=== PATIENT | male | born 1985 | race Caucasian/White ===

== ENCOUNTER 2016-12-27 08:56 | Day surgery (SDC) | payer BC, MEDICAID ==
[~2016-12-27 08:56] MED LIST: Buffered Lidocaine 1% SYR 3ML* 3 ML/SYR SYRINGE INTRADERM ONE
[2016-12-27] MEDS ORDERED: Oxymetazoline 0.05% NASAL SPR* 15 ML BTL ONE (11:41)
[2016-12-27] MEDS ORDERED: Lidocaine 4% TOPICAL* 50 ML TOP.SOLN ONE (11:41)
[2016-12-27] MEDS ORDERED: fentaNYL* 50 MCG/ML 2 ML VIAL (100 MCG VIAL) ONE (11:44)
[2016-12-27] MEDS ORDERED: Midazolam* 1 MG/ML 2 ML VIAL (2 MG) ONE (11:45)
[2016-12-27] MEDS ORDERED: Propofol* 10 MG/ML 20 ML BTL IV PUSH ONE (12:10)
[2016-12-27] MEDS ORDERED: Succinylcholine* 20 MG/ML 10 ML VIAL ONE (12:10)
[2016-12-27] MEDS ORDERED: Lidocaine 2% PF * 5 ML VIAL ONE (12:10)
[2016-12-27] MEDS ORDERED: Dexamethasone IV* 4 MG/ML 1 ML (4 MG) ONE (12:10)
[2016-12-27] MEDS ORDERED: Ondansetron INJ* 2 MG/ML VIAL ONE (12:10)
[2016-12-27] MEDS ORDERED: Acetaminophen TAB* 325 MG ONE (12:54)
[2016-12-27 13:22] VITALS: BP 139/92
--- NOTE | 2016-12-28 00:30 | OP ---
DATE OF OPERATION: 12/27/16 - [facility] DATE OF : 87 SURGEON: Cale Cummings MD ANESTHESIOLOGIST: Deanna Mora MD ANESTHESIA: General endotracheal anesthesia. 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 OPERATIVE PROCEDURE: Microlaryngoscopy with manipulation of the right arytenoid cartilage under general endotracheal anesthesia. COMPLICATION: None. DISPOSITION: Good. SPECIMEN: None. BLOOD LOSS: None. DESCRIPTION OF PROCEDURE: The patient was taken to the operating room, placed in the supine position on the operating table, general anesthesia was introduced , orotracheally intubated, turned and draped for the surgery. Teeth guard was placed on the upper teeth and the laryngoscope was inserted, so I could visualize the larynx and was suspended from Rojas stand using the suspension system. Using a big long microlaryngeal spatula and some suction, I manipulated the arytenoid. I removed the tube, so I could get a really good visualization. I moved the arytenoid around, tried to push it back into position and re-intubate it, removed the laryngoscope and the teeth guard. The patient tolerated the procedure very well, no complications, transferred to the recovery room in stable condition. [id number]/CPS #: [id number] [facility]
== END 2016-12-27 13:00 | disposition home or self-care (01) ==
LOC: OR 08:56
PROVIDERS: ATTEND Otolaryngology
DX: J39.2 Other diseases of pharynx (principal); J38.01 Paralysis of vocal cords and larynx, unilateral; R13.14 Dysphagia, pharyngoesophageal phase; E03.9 Hypothyroidism, unspecified; Z87.820 Personal history of traumatic brain injury
CPT/HCPCS: A9270-GY; J0330; J1100; J2250; J2405; J2704; J3010

== ENCOUNTER 2018-05-23 17:06 | Emergency (ER) | payer OTHER, MEDICAID ==
[2018-05-23 17:41] VITALS: BP 135/95
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
== END 2018-05-23 18:20 | disposition home health service (06) ==
LOC: UCEAST 17:06
DX: R10.31 Right lower quadrant pain (principal); R73.03 Prediabetes; F32.9 Major depressive disorder, single episode, unspecified; Z88.0 Allergy status to penicillin; Z88.1 Allergy status to other antibiotic agents; Z79.899 Other long term (current) drug therapy; Z86.718 Personal history of other venous thrombosis and embolism; Z87.891 Personal history of nicotine dependence
CPT/HCPCS: 99212; G0463

== ENCOUNTER 2018-05-23 18:41 | Emergency (ER) | payer OTHER, MEDICAID ==
[2018-05-23] MEDS ORDERED: Desmopressin TAB (NF) 0.2 MG TAB PO ONE (20:17)
[2018-05-23] MEDS ORDERED: CMCS:Desmopressin TAB (NF) 0.1 MG TAB PO ONE (21:00)
[2018-05-24] MEDS ORDERED: NS 0.9% 1000 ML* 2,000 ML IV ONE (00:34)
[2018-05-24] MEDS ORDERED: Morphine INJ* 10 MG/ML 1 ML CARPUJECT IV ONE (00:34)
[2018-05-24 00:49] LABS: ABS Basophils 0.1 10^3/ul (0-0.2); ABS Eosinophils 0.3 10^3/ul (0-0.6); ABS Lymphocytes 2.7 10^3/ul (1.0-4.8); ABS Monocytes 0.6 10^3/ul (0-0.8); ABS Neutrophils 4.8 10^3/ul (1.5-7.7); ABS Nucleated RBC 0 10^3/ul; Eosinophil % 3.3 % (0-6); Hematocrit 39 % (42-52); Lymphocyte % 31.7 % (25-47); Mean Corpuscular HGB Conc 36 g/dl (31-36); Mean Corpuscular Hemoglobin 32 pg (27-31); Mean Corpuscular Volume 89 fL (80-94); Mean Platelet Volume 7.5 um3 (7.4-10.4); Nucleated Red Blood Cells % 0.1; Platelet Count 207 10^3/ul (150-450); Red Blood Count 4.39 10^6/ul (4.00-5.40); Red Cell Distribution Width 14 % (10.5-15); White Blood Count 8.5 10^3/ul (3.5-10.8)
[2018-05-24 01:08] LABS: EGFR Non-African American 99.1 (>60)
[2018-05-24] MEDS ORDERED: Morphine INJ** 4 MG/ML 1 ML CARPUJECT IV ONE (01:10)
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
[2018-05-24] MEDS ORDERED: Iodixanol* (CONTRAST) 320 MG/ML 100 ML SDV IV ONE (02:56)
[2018-05-24 04:12] LABS: Urine Appearance Clear; Urine Blood Negative (Negative); Urine Color Yellow; Urine Ketones Negative (Negative); Urine Protein Negative (Negative); Urine Specific Gravity 1.039 (1.010-1.030); Urine Urobilinogen Negative (Negative)
[2018-05-24 06:17] VITALS: BP 100/62
--- NOTE | 2018-05-24 08:00 | RAD ---
CLINICAL HISTORY: llq pain, ?diverticulitis COMPARISON: None TECHNIQUE: Multiple contiguous axial CT scans were obtained of the abdomen and pelvis after the administration of intravenous contrast. Coronal and sagittal multiplanar reformations are submitted for review. Oral contrast was administered. Delayed images were obtained through the abdomen. FINDINGS: LUNG BASES: There is minimal dependent atelectasis. LIVER: The liver is diffusely low in attenuation compared to the spleen. There are no focal hepatic parenchymal masses. The liver measures 20 cm in long axis. BILE DUCTS: There is no intrahepatic or extrahepatic biliary dilatation. GALLBLADDER: The gallbladder is normal, without pericholecystic inflammatory change. PANCREAS: The pancreas is normal, without mass or ductal dilatation. SPLEEN: The spleen is homogeneously enlarged measuring 16.6 x 5.2 x 10.3 cm in size. UPPER GI TRACT: Evaluation of the gastrointestinal tract is limited by incomplete gastric distention. The upper GI tract is unremarkable. SMALL BOWEL AND MESENTERY: The small bowel is normal in contour, course, and caliber. There is no obstruction or dilatation. COLON: There are multiple diverticula of the descending and rectosigmoid colon. There is mucosal thickening with stranding of the pericolic fat of the sigmoid colon. There is no loculated fluid collection to suggest abscess. There is a tubular, vermiform, hollow viscus that is blind ending, and originates from the cecum, consistent with a normal appendix. There is no periappendiceal inflammatory change. This is best seen on axial images 63 through 68 ADRENALS: Normal bilaterally. KIDNEYS: There is a simple cyst of the upper pole of the right kidney. There is no appreciable hydronephrosis or nephrolithiasis.. BLADDER: The bladder is smooth in contour. PELVIC ORGANS: The prostate gland is normal. The seminal vesicles are symmetric. AORTA: The aorta is normal. IVC: An IVC filter is noted. LYMPH NODES: There is no lymphadenopathy by size criteria. ABDOMINAL WALL: There is no evidence for abdominal wall hernia. BONES AND SOFT TISSUES: Minimal degenerative changes are noted.. There is mild loss of vertebral body height at T9 OTHER: None IMPRESSION: 1. THERE IS DIVERTICULOSIS WITH MUCOSAL THICKENING AND PERICOLIC INFLAMMATORY CHANGE OF THE SIGMOID COLON, CONSISTENT WITH ACUTE DIVERTICULITIS. THERE IS NO LOCULATED FLUID COLLECTION TO SUGGEST ABSCESS. 2. FATTY INFILTRATION OF THE LIVER WITH HEPATOSPLENOMEGALY. R2
== END 2018-05-24 06:16 | disposition home or self-care (01) ==
LOC: ED 18:41
DX: K57.32 Diverticulitis of large intestine without perforation or abscess without bleeding (principal); Z88.1 Allergy status to other antibiotic agents; Z88.0 Allergy status to penicillin; Z86.711 Personal history of pulmonary embolism; Z79.01 Long term (current) use of anticoagulants; K21.9 Gastro-esophageal reflux disease without esophagitis; Z83.79 Family history of other diseases of the digestive system; Z87.891 Personal history of nicotine dependence
CPT/HCPCS: 36415; 74177; 80053; 81003; 83690; 85025; 86140; 96374; 99284; J2270; Q9967

== ENCOUNTER 2020-01-09 17:25 | Emergency (ER) | payer OTHER ==
[2020-01-09 18:13] VITALS: BP 137/100
[2020-01-09] MEDS ORDERED: Tetan/Diph/Pertus SYR(Tdap)* 0.5 ML SYR(BOOSTRIX) use SYR contains LATEX IM ONE (18:14)
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
--- NOTE | 2020-01-10 12:46 | UC ---
- Progress Note Progress Note: final x ray: negative for fx or free air. No change from wet read. Kj Wade MD Course/Dx - Diagnoses Provider Diagnoses: Puncture wound of toe Discharge ED - Sign-Out/Discharge Documenting (check all that apply): Post-Discharge Follow Up All imaging exams completed and their final reports reviewed: Yes - Discharge Plan Condition: Stable Disposition: HOME Prescriptions: clindamycin HCL [Clindamycin HCl] 300 mg PO TID 7 Days #21 capsule HYDROcodone/ACETAMIN 5-325 MG* [[place] 5-325 TAB*] 1 tab PO Q8H PRN #9 tab MDD 3 PRN Reason: Pain - Severe Levofloxacin TAB* [Levaquin TAB*] 750 mg PO DAILY 5 Days #5 tab Patient Education Materials: Puncture Wound (ED) Referrals: Rafael Fierro MD [Primary Care Provider] - Additional Instructions: Your blood pressure was high at todays visit. Please see your primary provider within 4 weeks for recheck and re-evaluation. Take the antibiotics as prescribed - recommended to take with food. If you develop increased pain, fever, redness, drainage, or streaking redness - please go to the ER immediately. Your tetanus shot was updated today - Billing Disposition and Condition Condition: STABLE Disposition: Home
== END 2020-01-09 19:10 | disposition home or self-care (01) ==
LOC: UCEAST 17:25
DX: S91.132A Puncture wound without foreign body of left great toe without damage to nail, initial encounter (principal); Z23 Encounter for immunization; E11.9 Type 2 diabetes mellitus without complications; E03.9 Hypothyroidism, unspecified; I82.409 Acute embolism and thrombosis of unspecified deep veins of unspecified lower extremity; E23.2 Diabetes insipidus; W45.8XXA Other foreign body or object entering through skin, initial encounter; Y92.9 Unspecified place or not applicable; Y99.0 Civilian activity done for income or pay; Z88.0 Allergy status to penicillin; Z88.1 Allergy status to other antibiotic agents; Z79.890 Hormone replacement therapy; Z79.899 Other long term (current) drug therapy; Z88.8 Allergy status to other drugs, medicaments and biological substances; Z79.84 Long term (current) use of oral hypoglycemic drugs; Z87.891 Personal history of nicotine dependence
CPT/HCPCS: 90471; 90715; 99212; G0463

== ENCOUNTER 2023-01-10 18:24 | Observation (INO) ==
[2023-01-10] MEDS ORDERED: Al Hydrox/Mg Hydrox/Simet LIQ 30 ML UDC PO ONE (21:27)
[2023-01-10 21:52] LABS: ABS Basophils 0.1 10^3/ul (0-0.2); ABS Eosinophils 0.1 10^3/ul (0-0.6); ABS Lymphocytes 1.9 10^3/ul (1.0-4.8); ABS Monocytes 0.7 10^3/ul (0-0.8); ABS Neutrophils 3.7 10^3/ul (1.5-7.7); Eosinophil % 1.7 %; Hematocrit 43 % (42-52); Hemoglobin 15.1 g/dL (14.0-18.0); Mean Corpuscular HGB Conc 35 g/dL (31-36); Mean Corpuscular Hemoglobin 32 pg (27-31); Mean Corpuscular Volume 90 fL (80-94); Mean Platelet Volume 7.2 fL (7.4-10.4); Platelet Count 223 10^3/uL (150-450); Red Blood Count 4.77 10^6 /uL (4.18-5.48); Red Cell Distribution Width 14 % (10-15); White Blood Count 6.6 10^3/uL (3.5-10.8)
[2023-01-10 22:31] LABS: ALT 26 U/L (7-52); AST 15 U/L (13-39); Albumin 4.5 g/dL (3.2-5.2); Alkaline Phosphatase 45 U/L (35-149); Anion Gap 7 mmol/L (2-11); Blood Urea Nitrogen 18 mg/dL (6-24); C Reactive Protein 11.17 mg/L (<8.01); CO2 Carbon Dioxide 24 mmol/L (22-32); Calcium 8.9 mg/dL (8.6-10.3); Chloride 95 mmol/L (101-111); Creatinine, Serum 0.71 mg/dL (0.67-1.17); Globulin 2.2 g/dL (2-4); Glucose 104 mg/dL (70-100); Lipase 11 U/L (11.0-82.0); Magnesium 1.9 mg/dL (1.9-2.7); Potassium 3.6 mmol/L (3.5-5.0); Sodium 126 mmol/L (135-145); Total Protein 6.7 g/dL (6.4-8.9); eGFR CKD-EPI 121.9 (>60)
[2023-01-10] MEDS ORDERED: Iodixanol (CONTRAST) 320 MG/ML 100 ML SDV IV ONE (22:35)
[2023-01-10 22:36] LABS: HCG Pregnancy < 0.60 mIU/mL
[2023-01-11 01:49] LABS: Urine Osmo 1023 mOsm/kg (150-1150)
[2023-01-11 01:50] LABS: Osmolality Serum 266 mOsm/kg (275-295)
[2023-01-11 02:10] LABS: Urine Appearance Clear; Urine Bacteria Absent (Absent); Urine Bilirubin Negative (Negative); Urine Blood 1+ (Negative); Urine Color Yellow; Urine Glucose Negative (Negative); Urine Ketones 2+ (Negative); Urine Nitrite Negative (Negative); Urine Protein 1+(30 mg/dL) (Negative); Urine Red Blood Cell 1+(3-5/hpf) (Absent); Urine Urobilinogen Negative (Negative); Urine White Blood Cell Absent (Absent)
[2023-01-11 02:21] LABS: Urine Specific Gravity > 1.060 (1.002-1.030)
[2023-01-11 03:06] LABS: Potassium 3.7 mmol/L (3.5-5.0)
[2023-01-11 03:07] LABS: Albumin 4.2 g/dL (3.2-5.2); Calcium 8.7 mg/dL (8.6-10.3); Total Bilirubin 0.8 mg/dL (0.2-1.0)
[2023-01-11 03:12] LABS: Creatinine, Serum 0.77 mg/dL (0.67-1.17)
[2023-01-11 03:13] LABS: Albumin/Globulin Ratio 1.8 (1-3); Globulin 2.3 g/dL (2-4); Total Protein 6.5 g/dL (6.4-8.9)
[2023-01-11 03:31] LABS: TSH Ultra Thyroid Stim Horm 0.03 mcIU/mL (0.34-5.60)
[2023-01-11] MEDS: Venlafaxine XR 75 mg PO SCH ×2 (09:27→09:30)
[2023-01-11 10:11] LABS: Calcium 8.6 mg/dL (8.6-10.3); Creatinine, Serum 0.76 mg/dL (0.67-1.17); Potassium 3.9 mmol/L (3.5-5.0); eGFR CKD-EPI 119.5 (>60)
[2023-01-11] MEDS: Hydrocortisone INJ 100 MG/2ML 2 ML VIAL IV SCH ×2 (10:40→16:24)
[2023-01-11] MEDS ORDERED: NS 0.9% 1000 ml BAG 1,000 ML IV SCH (16:00)
[2023-01-11 16:44] LABS: Creatinine, Serum 0.81 mg/dL (0.67-1.17); Potassium 4.3 mmol/L (3.5-5.0); eGFR CKD-EPI 117.2 (>60)
[2023-01-11] MEDS ORDERED: CMCS: Desmopressin 0.1 mg TAB (NF) PO SCH (17:00)
[2023-01-11] MEDS ORDERED: D5W 500 ml BAG 500 ML IV ONE (17:08)
[2023-01-11] MEDS: CMCS: Desmopressin 0.1 mg TAB (NF) PO SCH ×2 (17:46→21:42)
[2023-01-11 19:50] LABS: Calcium 9.7 mg/dL (8.6-10.3); Creatinine, Serum 0.87 mg/dL (0.67-1.17); Potassium 4.7 mmol/L (3.5-5.0); eGFR CKD-EPI 114.7 (>60)
[2023-01-11] MEDS ORDERED: Venlafaxine XR 75 mg PO SCH (22:00)
[2023-01-11] MEDS ORDERED: D5W 500 ml BAG 500 ML IV SCH (23:45)
[2023-01-12] MEDS: CMCS: Desmopressin 0.1 mg TAB (NF) PO SCH ×2 (00:14→07:36)
[2023-01-12 06:46] LABS: ABS Eosinophils 0.1 10^3/ul (0-0.6); ABS Lymphocytes 2.1 10^3/ul (1.0-4.8); Eosinophil % 1.2 %; Hematocrit 46 % (42-52); Hemoglobin 15.9 g/dL (14.0-18.0); Lymphocyte % 25.6 %; Mean Corpuscular HGB Conc 35 g/dL (31-36); Mean Corpuscular Hemoglobin 32 pg (27-31); Mean Corpuscular Volume 91 fL (80-94); Mean Platelet Volume 7.4 fL (7.4-10.4); Platelet Count 259 10^3/uL (150-450); Red Cell Distribution Width 14 % (10-15); White Blood Count 8.2 10^3/uL (3.5-10.8)
[2023-01-12 06:55] LABS: Calcium 9.5 mg/dL (8.6-10.3); Creatinine, Serum 0.94 mg/dL (0.67-1.17); Potassium 4.5 mmol/L (3.5-5.0); eGFR CKD-EPI 107.7 (>60)
[2023-01-12 07:29] VITALS: BP 128/79
== END 2023-01-12 10:20 | disposition home or self-care (01) ==
LOC: EDHOLD 18:24 → ED 18:24 → EDHOLD 01-11 07:16 → SSU 01-11 08:10
PROVIDERS: ADMIT Hospitalist; ATTEND Hospitalist